=== PATIENT | female | born 1945 | race Caucasian/White ===

== ENCOUNTER → 2016-12-23 | Outpatient (CLI) | payer MEDICARE, BC ==
[~2016-12-23] MED LIST: AMITRIPTYLINE25 M1 PO; ATENOLOL50 MG PO; ATIVAN1 MG PO; FLUOXETINE PO; GABAPENTIN100 MG; HCTZ; KEPPRA 500MG500 MG PO; LIPITOR PO; MELOXICAM7.5 MG PO; NEURONTIN300 MG PO; RITALIN 20M20 MG/TAB PO; SEPTRA DS 800 M1 TA1 PO; SYNTHROID0.075 MG PO; TOPAMAX100 MG PO; TOPAMAX50 MG PO; ULTRAM 50MG TAB50 MG PO; ZANTAC 300300 MG PO
== END ==
LOC: MAMMO 13:25
DX: Z12.31 Encounter for screening mammogram for malignant neoplasm of breast (principal)
CPT/HCPCS: G0202

== ENCOUNTER → 2017-01-05 | Outpatient (CLI) | payer MEDICARE, BC ==
[2017-01-05 11:41] VITALS: BP 134/80
== END ==
LOC: AMSURD 11:14
DX: M85.89 Other specified disorders of bone density and structure, multiple sites (principal); E03.9 Hypothyroidism, unspecified; R73.02 Impaired glucose tolerance (oral)

== ENCOUNTER → 2017-02-02 | Day surgery (SDC) | payer MEDICARE, BC ==
[2017-01-05 11:41] VITALS: BP 134/80
== END ==
LOC: MSO 08:34
DX: Z12.11 Encounter for screening for malignant neoplasm of colon (principal); I10 Essential (primary) hypertension; G47.33 Obstructive sleep apnea (adult) (pediatric); K21.9 Gastro-esophageal reflux disease without esophagitis
CPT/HCPCS: 00810; J3010; J7120

== ENCOUNTER → 2017-05-06 | Outpatient (CLI) | payer MEDICARE, BC ==
[2017-01-05 11:41] VITALS: BP 134/80
== END ==
LOC: LAB 14:28
DX: R20.0 Anesthesia of skin (principal); R20.2 Paresthesia of skin

== ENCOUNTER → 2017-05-28 | Outpatient (CLI) | payer MEDICARE, BC ==
[~2017-05-28] VITALS: Ht 157.5 cm; Wt 82.3 kg
[2017-05-28 10:15] VITALS: BP 118/64
== END ==
LOC: AMSURD 10:09
DX: K59.00 Constipation, unspecified (principal); R42 Dizziness and giddiness; R10.9 Unspecified abdominal pain

== ENCOUNTER → 2017-06-05 | Outpatient (CLI) | payer MEDICARE, BC ==
[2017-05-28 10:15] VITALS: BP 118/64
== END ==
LOC: LAB 14:45
DX: N39.0 Urinary tract infection, site not specified (principal)

== ENCOUNTER → 2017-06-08 | Outpatient (CLI) | payer MEDICARE, BC ==
[2017-05-28 10:15] VITALS: BP 118/64
== END ==
LOC: RAD 12:00
DX: G31.84 Mild cognitive impairment of uncertain or unknown etiology (principal); R25.1 Tremor, unspecified

== ENCOUNTER → 2017-08-07 | Outpatient (CLI) | payer MEDICARE, BC ==
[2017-05-28 10:15] VITALS: BP 118/64
[2017-08-08 01:54] LABS: T3 TOTAL 95 ng/dL (87-178)
== END ==
LOC: LAB 14:04
PROVIDERS: Internal Medicine
DX: E03.9 Hypothyroidism, unspecified (principal)

== ENCOUNTER → 2018-01-15 | Outpatient (CLI) | payer MEDICARE, BC ==
[~2018-01-15] VITALS: Ht 157.5 cm; Wt 84.1 kg
[~2018-01-15] MED LIST changes: +ATORVASTATIN CA40 MG PO; +LEVOCETIRIZINE D5 MG PO
[2018-01-15 10:35] VITALS: BP 147/72
[2018-01-15 11:35] LABS: EOS # 0.3 (0.04-0.40); EOS % 4.3 % (1.0-5.0); HEMATOCRIT 44.1 % (37.0-47.0); HEMOGLOBIN 13.9 g/dL (12.5-16.0); LYMPH# 1.9 (1.50-4.00); MEAN CELL VOLUME 90 fl (78-100); MEAN CORPUSCULAR HEMOGLOBIN 28 pg (27-31); MEAN CORPUSCULAR HGB CONC 32 g/dL (33-37); MEAN PLATELET VOLUME 10.9 fl (7.4-10.4); MONO # 0.6 (0.20-0.80); NEU # 3.4 (1.40-6.50); PLATELET COUNT 138 K/mm3 (130-400); RED BLOOD COUNT 4.93 M/mm3 (4.10-5.30); RED CELL DISTRIBUTION WIDTH 13.1 % (11.5-14.5); WHITE BLOOD COUNT 6.3 K/mm3 (4.8-10.8)
[2018-01-15 13:01] LABS: ERYTHROCYTE SEDIMENTATION RATE 7 mm/hr (0-30)
[2018-01-15 13:42] LABS: ALBUMIN 4.2 g/dL (3.5-5.0); BUN/CREATININE RATIO 26.3 (6.0-26.0); CALCIUM 9.6 mg/dL (8.4-10.2); POTASSIUM 3.5 mmol/L (3.6-5.0); TOTAL BILIRUBIN 0.4 mg/dL (0.2-1.3); TOTAL PROTEIN 7.6 g/dL (6.3-8.2)
[2018-01-15 13:51] LABS: PH-URINE 5.5 (5.0 - 8.0); URINE APPEARANCE HAZY; URINE COLOR YELLOW; URINE PROTEIN(semi-quant) TRACE mg/dL (NEGATIVE)
[2018-01-15 13:52] LABS: URINE BILIRUBIN NEGATIVE (NEGATIVE); URINE BLOOD NEGATIVE (NEGATIVE); URINE GLUCOSE NEGATIVE (NEGATIVE); URINE KETONE NEGATIVE (NEGATIVE); URINE LEUKOCYTE ESTERASE TRACE (NEGATIVE); URINE NITRATE NEGATIVE (NEGATIVE); URINE UROBILINOGEN NORMAL (NORMAL)
[2018-01-16 01:18] LABS: T3 TOTAL 121 ng/dL (87-178)
== END ==
LOC: AMSURD 10:14
PROVIDERS: Internal Medicine
DX: E74.39 Other disorders of intestinal carbohydrate absorption (principal); E78.5 Hyperlipidemia, unspecified; R73.02 Impaired glucose tolerance (oral); E03.9 Hypothyroidism, unspecified; R06.02 Shortness of breath; Z12.11 Encounter for screening for malignant neoplasm of colon; G25.0 Essential tremor; M85.89 Other specified disorders of bone density and structure, multiple sites

== ENCOUNTER → 2018-01-26 | Outpatient (CLI) | payer MEDICARE, BC ==
[2018-01-15 10:35] VITALS: BP 147/72
== END ==
LOC: MAMMO 14:10
DX: Z12.31 Encounter for screening mammogram for malignant neoplasm of breast (principal)

== ENCOUNTER → 2018-01-26 | Outpatient (CLI) | payer MEDICARE, BC ==
[2018-01-15 10:35] VITALS: BP 147/72
== END ==
LOC: RAD 14:08 → MAMMO 14:08 → RAD 15:15
DX: Z13.820 Encounter for screening for osteoporosis (principal); M85.88 Other specified disorders of bone density and structure, other site; R06.02 Shortness of breath; Z88.7 Allergy status to serum and vaccine; Z88.8 Allergy status to other drugs, medicaments and biological substances

== ENCOUNTER 2018-04-15 20:55 | Emergency (ER) | payer MEDICARE, BC ==
[2018-04-15] MEDS ORDERED: FLOVENT DI100 MCG/Ac IH (21:03)
[2018-04-15] MEDS ORDERED: PROAIR HFA0.09 MG/AC IH (21:03)
[2018-04-15 22:24] LABS: HEMATOCRIT 42.8 % (37.0-47.0); HEMOGLOBIN 13.9 g/dL (12.5-16.0); MEAN CELL VOLUME 89 fl (78-100); MEAN CORPUSCULAR HEMOGLOBIN 29 pg (27-31); MEAN CORPUSCULAR HGB CONC 33 g/dL (33-37); MEAN PLATELET VOLUME 11.5 fl (7.4-10.4); PLATELET COUNT 123 K/mm3 (130-400); RED BLOOD COUNT 4.83 M/mm3 (4.10-5.30); RED CELL DISTRIBUTION WIDTH 13.7 % (11.5-14.5); WHITE BLOOD COUNT 7.3 K/mm3 (4.8-10.8)
[2018-04-15 22:43] LABS: ALBUMIN 3.8 g/dL (3.5-5.0); BUN/CREATININE RATIO 34.3 (6.0-26.0); CALCIUM 8.9 mg/dL (8.4-10.2); POTASSIUM 3.8 mmol/L (3.6-5.0); TOTAL BILIRUBIN 0.2 mg/dL (0.2-1.3); TOTAL PROTEIN 6.9 g/dL (6.3-8.2)
[2018-04-15 22:46] LABS: CKMB ISOENZYME 1.3 ng/mL (0.6-3.5)
[2018-04-15 22:52] LABS: LYMPHOCYTE 29 % (20-51); MONOCYTE 5 % (3-10); NEUTROPHILS 64 % (42-75)
[2018-04-15 22:54] LABS: TROPONIN-I < 0.03 ng/mL (0.00-0.06)
[2018-04-15 23:04] LABS: URINE APPEARANCE HAZY; URINE BILIRUBIN NEGATIVE (NEGATIVE); URINE BLOOD 50 ery/uL (NEGATIVE); URINE COLOR YELLOW; URINE GLUCOSE NEGATIVE (NEGATIVE); URINE KETONE NEGATIVE (NEGATIVE); URINE LEUKOCYTE ESTERASE NEGATIVE (NEGATIVE); URINE MUCUS PRESENT (NOT PRESENT); URINE NITRATE NEGATIVE (NEGATIVE); URINE PROTEIN(semi-quant) 1+ mg/dL (NEGATIVE); URINE UROBILINOGEN NORMAL (NORMAL)
[2018-04-15 23:11] LABS: D-DIMER 4.84 mg/L FEU (0.15-0.50)
[2018-04-16] MEDS ORDERED: MULTI VITAMINS1 TAB PO (01:20)
[2018-04-16] MEDS ORDERED: VITAMIN D32000 UNI1 PO (01:20)
[2018-04-16] MEDS ORDERED: RANITIDINE HCL300 M1 PO (01:21)
[2018-04-16] MEDS ORDERED: ALENDRONATE SOD70 MG PO (01:21)
[2018-04-16] MEDS ORDERED: LEVETIRACETAM500 MG PO (01:23)
[2018-04-16] MEDS ORDERED: ASPIRIN E.C. 8181 MG PO (01:24)
[2018-04-16] MEDS ORDERED: ATENOLOL50 MG PO (01:24)
[2018-04-16 02:15] LABS: PROTHROMBIN TIME 9.9 SECONDS (9.0-12.0)
[2018-04-16 03:00] VITALS: BP 124/48
== END 2018-04-16 03:00 | disposition short-term general hospital (02) ==
LOC: ED 20:55
PROVIDERS: Nurse Practitioner Family
DX: I26.99 Other pulmonary embolism without acute cor pulmonale (principal); J45.909 Unspecified asthma, uncomplicated; Z79.82 Long term (current) use of aspirin; Z79.899 Other long term (current) drug therapy; E78.5 Hyperlipidemia, unspecified; F41.9 Anxiety disorder, unspecified
CPT/HCPCS: J1644; J7030

== ENCOUNTER → 2018-08-10 | Outpatient (CLI) | payer MEDICARE, BC ==
[~2018-08-10] MED LIST changes: +ALENDRONATE SOD70 MG PO; +ASPIRIN E.C. 8181 MG PO; +FLOVENT DI100 MCG/Ac IH; +LEVETIRACETAM500 MG PO; +MULTI VITAMINS1 TAB PO; +PROAIR HFA0.09 MG/AC IH; +RANITIDINE HCL300 M1 PO; +VITAMIN D32000 UNI1 PO
[2018-08-10 14:23] LABS: EOS # 0.2 (0.04-0.40); EOS % 3.8 % (1.0-5.0); HEMATOCRIT 42.6 % (37.0-47.0); HEMOGLOBIN 13.7 g/dL (12.5-16.0); LYMPH# 1.7 (1.50-4.00); MEAN CELL VOLUME 90 fl (78-100); MEAN CORPUSCULAR HEMOGLOBIN 29 pg (27-31); MEAN CORPUSCULAR HGB CONC 32 g/dL (33-37); MEAN PLATELET VOLUME 10.7 fl (7.4-10.4); MONO # 0.5 (0.20-0.80); NEU # 2.7 (1.40-6.50); PLATELET COUNT 163 K/mm3 (130-400); RED BLOOD COUNT 4.76 M/mm3 (4.10-5.30); RED CELL DISTRIBUTION WIDTH 13.6 % (11.5-14.5); WHITE BLOOD COUNT 5.1 K/mm3 (4.8-10.8)
[2018-08-10 16:33] LABS: CALCIUM 9.7 mg/dL (8.4-10.2); TOTAL BILIRUBIN 0.4 mg/dL (0.2-1.3); TOTAL PROTEIN 6.7 g/dL (6.3-8.2)
== END ==
LOC: LAB 13:52
PROVIDERS: Internal Medicine
DX: E74.39 Other disorders of intestinal carbohydrate absorption (principal); E78.5 Hyperlipidemia, unspecified; E03.9 Hypothyroidism, unspecified; G25.0 Essential tremor; M85.80 Other specified disorders of bone density and structure, unspecified site

== ENCOUNTER 2018-12-04 11:58 | Observation (INO) | payer MEDICARE, BC ==
[~2018-12-04] VITALS: Ht 157.5 cm; Wt 82.8 kg
[~2018-12-04 11:58] MED LIST changes: +ATIVAN1 M1 PO; -ATIVAN1 MG PO
[2018-12-04] MEDS ORDERED: AMITRIPTYLINE H25 M2 PO ×2 (12:18→14:27)
[2018-12-04 12:44] LABS: EOS # 0.2 (0.04-0.40); EOS % 2.9 % (1.0-5.0); HEMATOCRIT 42.7 % (37.0-47.0); HEMOGLOBIN 13.9 g/dL (12.5-16.0); LYMPH# 1.7 (1.50-4.00); MEAN CELL VOLUME 89 fl (78-100); MEAN CORPUSCULAR HEMOGLOBIN 29 pg (27-31); MEAN CORPUSCULAR HGB CONC 33 g/dL (33-37); MEAN PLATELET VOLUME 10.9 fl (7.4-10.4); MONO # 0.6 (0.20-0.80); NEU # 3.4 (1.40-6.50); PLATELET COUNT 140 K/mm3 (130-400); RED CELL DISTRIBUTION WIDTH 12.9 % (11.5-14.5); WHITE BLOOD COUNT 5.9 K/mm3 (4.8-10.8)
[2018-12-04 12:55] LABS: ALBUMIN 4.2 g/dL (3.5-5.0); CALCIUM 8.9 mg/dL (8.4-10.2); POTASSIUM 3.8 mmol/L (3.6-5.0); TOTAL BILIRUBIN 0.4 mg/dL (0.2-1.3)
[2018-12-04 12:59] LABS: TROPONIN-I 0.05 ng/mL (0.00-0.06)
[2018-12-04 13:20] LABS: D-DIMER 3.78 mg/L FEU (0.15-0.50)
[2018-12-04] MEDS ORDERED: TOPIRAMATE50 MG PO (14:20)
[2018-12-04] MEDS ORDERED: RANITIDINE HCL300 M2 PO (14:23)
[2018-12-04] MEDS ORDERED: TOPAMAX100 MG PO (14:23)
[2018-12-04] MEDS ORDERED: LEVETIRACETAM500 M2 PO (14:26)
[2018-12-04 14:48] VITALS: BP 107/56
[2018-12-04 15:13] VITALS: BP 116/77
[2018-12-04 18:28] VITALS: BP 146/58
[2018-12-04] MEDS ORDERED: MULTIPLE VITAM1 EACH PO (21:32)
[2018-12-04] MEDS ORDERED: VITAMIN D32000 UNI1 PO (21:33)
[2018-12-04] MEDS ORDERED: NEURONTIN300 MG/CAP PO (21:35)
[2018-12-04] MEDS ORDERED: RT ALBUTEROL CC18 GM IH (21:39)
[2018-12-04] MEDS ORDERED: FLONASE ALLERG9.9 ML NS (21:40)
[2018-12-04 23:20] VITALS: BP 97/50
[2018-12-05 02:32] VITALS: BP 112/69
[2018-12-05 06:25] VITALS: BP 112/69
[2018-12-05 10:49] VITALS: BP 107/57
[2018-12-05 14:55] LABS: URINE APPEARANCE CLEAR; URINE BILIRUBIN NEGATIVE (NEGATIVE); URINE BLOOD NEGATIVE (NEGATIVE); URINE COLOR YELLOW; URINE GLUCOSE NEGATIVE (NEGATIVE); URINE KETONE NEGATIVE (NEGATIVE); URINE LEUKOCYTE ESTERASE NEGATIVE (NEGATIVE); URINE NITRATE NEGATIVE (NEGATIVE); URINE PROTEIN(semi-quant) TRACE mg/dL (NEGATIVE); URINE UROBILINOGEN NORMAL (NORMAL)
[2018-12-05 15:00] VITALS: BP 86/52
[2018-12-05 17:53] VITALS: BP 125/71
[2018-12-05 22:34] VITALS: BP 115/74
[2018-12-06 02:48] VITALS: BP 111/77
[2018-12-06 06:23] VITALS: BP 115/75
[2018-12-06 07:42] LABS: TROPONIN-I < 0.03 ng/mL (0.00-0.06)
[2018-12-06 10:46] VITALS: BP 109/73
[2018-12-06 16:05] VITALS: BP 108/68
[2018-12-06] MEDS ORDERED: BACTRIM DS 8001 TAB PO (18:49)
[2018-12-06] MEDS ORDERED: PROVIGIL200 M1 PO (18:55)
[2018-12-06] MEDS ORDERED: XARELTO20 MG PO (19:01)
[2018-12-06] MEDS ORDERED: TRAMADOL 50 MG TAB PO (19:10)
== END 2018-12-06 17:18 | disposition other institution (70) ==
LOC: ED 11:58 → MED/SURG 14:11
PROVIDERS: ADMIT Family Medicine
DX: I26.99 Other pulmonary embolism without acute cor pulmonale (principal); J45.909 Unspecified asthma, uncomplicated; I10 Essential (primary) hypertension; G47.30 Sleep apnea, unspecified; K21.9 Gastro-esophageal reflux disease without esophagitis; G47.419 Narcolepsy without cataplexy; E78.5 Hyperlipidemia, unspecified; I27.20 Pulmonary hypertension, unspecified; G62.9 Polyneuropathy, unspecified; Z79.01 Long term (current) use of anticoagulants
CPT/HCPCS: A9585; G0378; Q9967

== ENCOUNTER 2018-12-06 16:59 | Inpatient (IN) | payer MEDICARE, BC ==
[~2018-12-06] VITALS: Ht 157.5 cm; Wt 83.7 kg
[~2018-12-06 16:59] MED LIST changes: +AMITRIPTYLINE H25 M2 PO; +FLONASE ALLERG9.9 ML NS; +LEVETIRACETAM500 M2 PO; +MULTIPLE VITAM1 EACH PO; +NEURONTIN300 MG/CAP PO; +RANITIDINE HCL300 M2 PO; +RT ALBUTEROL CC18 GM IH; +TOPIRAMATE50 MG PO
[2018-12-06] MEDS ORDERED: BACTRIM DS 8001 TAB PO (18:49)
[2018-12-06] MEDS ORDERED: PROVIGIL200 M1 PO (18:55)
[2018-12-06 18:59] VITALS: BP 113/73
[2018-12-06] MEDS ORDERED: XARELTO20 MG PO (19:01)
[2018-12-06 19:03] VITALS: BP 113/73
[2018-12-06] MEDS ORDERED: TRAMADOL 50 MG TAB PO (19:10)
[2018-12-06 23:02] VITALS: BP 123/83
[2018-12-07 02:51] VITALS: BP 110/62
[2018-12-07 06:00] LABS: EOS # 0.1 (0.04-0.40); EOS % 2.6 % (1.0-5.0); HEMATOCRIT 38.4 % (37.0-47.0); HEMOGLOBIN 12.5 g/dL (12.5-16.0); LYMPH# 1.9 (1.50-4.00); MEAN CELL VOLUME 90 fl (78-100); MEAN CORPUSCULAR HEMOGLOBIN 29 pg (27-31); MEAN CORPUSCULAR HGB CONC 33 g/dL (33-37); MEAN PLATELET VOLUME 10.8 fl (7.4-10.4); MONO # 0.5 (0.20-0.80); NEU # 2.3 (1.40-6.50); PLATELET COUNT 134 K/mm3 (130-400); RED BLOOD COUNT 4.26 M/mm3 (4.10-5.30); RED CELL DISTRIBUTION WIDTH 12.8 % (11.5-14.5); WHITE BLOOD COUNT 4.9 K/mm3 (4.8-10.8)
[2018-12-07 06:18] VITALS: BP 106/69
[2018-12-07 06:22] LABS: ALBUMIN 3.5 g/dL (3.5-5.0); CALCIUM 8.5 mg/dL (8.4-10.2); POTASSIUM 3.8 mmol/L (3.6-5.0); TOTAL BILIRUBIN 0.3 mg/dL (0.2-1.3); TOTAL PROTEIN 6.3 g/dL (6.3-8.2)
[2018-12-07 11:10] VITALS: BP 125/79
[2018-12-07 15:09] VITALS: BP 108/68
[2018-12-07 18:56] VITALS: BP 118/78
[2018-12-07 23:00] VITALS: BP 97/62
[2018-12-08 03:10] VITALS: BP 98/64
[2018-12-08 06:37] VITALS: BP 102/60
[2018-12-08 11:19] VITALS: BP 123/69
[2018-12-08 15:30] VITALS: BP 105/63
[2018-12-08 16:14] LABS: URINE APPEARANCE CLEAR; URINE COLOR YELLOW
[2018-12-08 16:15] LABS: URINE BILIRUBIN NEGATIVE (NEGATIVE); URINE BLOOD NEGATIVE (NEGATIVE); URINE GLUCOSE NEGATIVE (NEGATIVE); URINE KETONE NEGATIVE (NEGATIVE); URINE LEUKOCYTE ESTERASE NEGATIVE (NEGATIVE); URINE NITRATE NEGATIVE (NEGATIVE); URINE PROTEIN(semi-quant) TRACE mg/dL (NEGATIVE); URINE UROBILINOGEN NORMAL (NORMAL)
[2018-12-08 18:41] VITALS: BP 109/71
[2018-12-08 23:26] VITALS: BP 106/64
[2018-12-09 03:16] VITALS: BP 105/61
[2018-12-12 07:26] LABS: CALCIUM 8.8 mg/dL (8.4-10.2); POTASSIUM 3.8 mmol/L (3.6-5.0)
[2018-12-12 07:35] LABS: BASO # 0.1 (0.02-0.10); EOS # 0.2 (0.04-0.40); EOS % 3.7 % (1.0-5.0); HEMATOCRIT 41.2 % (37.0-47.0); LYMPH# 1.8 (1.50-4.00); MEAN CELL VOLUME 90 fl (78-100); MEAN CORPUSCULAR HEMOGLOBIN 28 pg (27-31); MEAN CORPUSCULAR HGB CONC 32 g/dL (33-37); MONO # 0.4 (0.20-0.80); NEU # 2.2 (1.40-6.50); PLATELET COUNT 149 K/mm3 (130-400); RED BLOOD COUNT 4.57 M/mm3 (4.10-5.30); RED CELL DISTRIBUTION WIDTH 12.9 % (11.5-14.5); WHITE BLOOD COUNT 4.6 K/mm3 (4.8-10.8)
== END 2018-12-09 08:45 | disposition swing bed (61) | DRG 176 ==
LOC: MED/SURG 16:59
PROVIDERS: Physician Assistant; ADMIT Nurse Practitioner Primary Care
DX: I26.99 Other pulmonary embolism without acute cor pulmonale (principal); I10 Essential (primary) hypertension; J45.909 Unspecified asthma, uncomplicated; E78.5 Hyperlipidemia, unspecified; E03.9 Hypothyroidism, unspecified; G47.419 Narcolepsy without cataplexy; F41.9 Anxiety disorder, unspecified; G62.9 Polyneuropathy, unspecified; G47.30 Sleep apnea, unspecified; F41.8 Other specified anxiety disorders; G89.29 Other chronic pain; Z91.14 Patient's other noncompliance with medication regimen; I27.20 Pulmonary hypertension, unspecified; R09.02 Hypoxemia; R07.9 Chest pain, unspecified; R41.0 Disorientation, unspecified
CPT/HCPCS: J1650

== ENCOUNTER 2018-12-09 08:45 | Inpatient (IN) | payer MEDICARE, BC ==
[~2018-12-09 08:45] MED LIST changes: +BACTRIM DS 8001 TAB PO; +PROVIGIL200 M1 PO; +TRAMADOL 50 MG TAB PO; +XARELTO20 MG PO
[2018-12-10 18:27] VITALS: BP 124/73
[2018-12-10 18:57] VITALS: BP 124/73
[2018-12-11 06:44] VITALS: BP 124/75
[2018-12-11 18:25] VITALS: BP 123/77
[2018-12-12 06:23] VITALS: BP 125/77
[2018-12-12 18:33] VITALS: BP 112/56; BP 93/55
[2018-12-13 06:06] VITALS: BP 108/58
[2018-12-13 18:54] VITALS: BP 115/62
[2018-12-14 06:26] VITALS: BP 119/76
[2018-12-14 18:00] VITALS: BP 122/61
[2018-12-15 06:22] VITALS: BP 115/72
[2018-12-15 18:00] VITALS: BP 139/63
[2018-12-16 06:24] VITALS: BP 100/59
[2018-12-16] MEDS ORDERED: XARELTO15 MG PO (08:57)
== END 2018-12-16 09:45 | disposition home health service (06) | DRG 947 ==
LOC: MED/SURG 08:45
PROVIDERS: ADMIT Nurse Practitioner Primary Care
DX: R53.81 Other malaise (principal); I26.99 Other pulmonary embolism without acute cor pulmonale; G92 Toxic encephalopathy; R41.0 Disorientation, unspecified; Z99.81 Dependence on supplemental oxygen; R42 Dizziness and giddiness; I27.20 Pulmonary hypertension, unspecified; Z79.01 Long term (current) use of anticoagulants; Z88.8 Allergy status to other drugs, medicaments and biological substances; Z83.2 Family history of diseases of the blood and blood-forming organs and certain disorders involving the immune mechanism; F32.9 Major depressive disorder, single episode, unspecified; R25.1 Tremor, unspecified; E03.9 Hypothyroidism, unspecified; T50.905A Adverse effect of unspecified drugs, medicaments and biological substances, initial encounter; Y92.239 Unspecified place in hospital as the place of occurrence of the external cause

== ENCOUNTER → 2019-01-10 | Outpatient (CLI) | payer MEDICARE, BC ==
[2018-12-16 06:24] VITALS: BP 100/59
[~2019-01-10] MED LIST changes: +XARELTO15 MG PO
[2019-01-10 15:30] LABS: URINE APPEARANCE HAZY; URINE COLOR YELLOW
[2019-01-10 15:31] LABS: URINE BILIRUBIN NEGATIVE (NEGATIVE); URINE BLOOD NEGATIVE (NEGATIVE); URINE GLUCOSE NEGATIVE (NEGATIVE); URINE KETONE NEGATIVE (NEGATIVE); URINE LEUKOCYTE ESTERASE 1+ (NEGATIVE); URINE NITRATE NEGATIVE (NEGATIVE); URINE PROTEIN(semi-quant) TRACE mg/dL (NEGATIVE); URINE UROBILINOGEN NORMAL (NORMAL)
== END ==
LOC: LAB 15:02
PROVIDERS: Internal Medicine
DX: N30.00 Acute cystitis without hematuria (principal)

== ENCOUNTER → 2019-01-21 | Outpatient (CLI) | payer MEDICARE, BC ==
[2019-01-21 16:06] LABS: EOS # 0.1 (0.04-0.40); EOS % 2.2 % (1.0-5.0); HEMATOCRIT 44.4 % (37.0-47.0); HEMOGLOBIN 13.9 g/dL (12.5-16.0); LYMPH# 1.7 (1.50-4.00); MEAN CELL VOLUME 91 fl (78-100); MEAN CORPUSCULAR HEMOGLOBIN 28 pg (27-31); MEAN CORPUSCULAR HGB CONC 31 g/dL (33-37); MEAN PLATELET VOLUME 10.6 fl (7.4-10.4); MONO # 0.6 (0.20-0.80); NEU # 2.9 (1.40-6.50); PLATELET COUNT 196 K/mm3 (130-400); RED BLOOD COUNT 4.89 M/mm3 (4.10-5.30); RED CELL DISTRIBUTION WIDTH 12.9 % (11.5-14.5); WHITE BLOOD COUNT 5.4 K/mm3 (4.8-10.8)
[2019-01-21 16:46] LABS: ALBUMIN 4.6 g/dL (3.5-5.0); CALCIUM 9.7 mg/dL (8.4-10.2); POTASSIUM 4.8 mmol/L (3.6-5.0); TOTAL BILIRUBIN 0.4 mg/dL (0.2-1.3); TOTAL PROTEIN 7.5 g/dL (6.3-8.2)
[2019-01-21 17:48] LABS: URINE APPEARANCE HAZY; URINE COLOR YELLOW
[2019-01-21 17:49] LABS: URINE BILIRUBIN NEGATIVE (NEGATIVE); URINE BLOOD TRACE (NEGATIVE); URINE GLUCOSE NEGATIVE (NEGATIVE); URINE KETONE NEGATIVE (NEGATIVE); URINE LEUKOCYTE ESTERASE NEGATIVE (NEGATIVE); URINE NITRATE NEGATIVE (NEGATIVE); URINE PROTEIN(semi-quant) TRACE mg/dL (NEGATIVE); URINE UROBILINOGEN NORMAL (NORMAL)
[2019-01-21 21:08] LABS: ERYTHROCYTE SEDIMENTATION RATE 5 mm/hr (0-30)
[2019-01-22 00:31] LABS: T3 TOTAL 54 ng/dL (87-178)
== END ==
LOC: LAB 15:48
PROVIDERS: Internal Medicine
DX: Z12.11 Encounter for screening for malignant neoplasm of colon (principal); E74.39 Other disorders of intestinal carbohydrate absorption; E03.8 Other specified hypothyroidism; M85.80 Other specified disorders of bone density and structure, unspecified site; G25.0 Essential tremor

== ENCOUNTER → 2019-02-02 | Outpatient (CLI) | payer MEDICARE, BC | LOC: MAMMO 08:16 | DX: Z12.31 Encounter for screening mammogram for malignant neoplasm of breast (principal); M85.80 Other specified disorders of bone density and structure, unspecified site ==

== ENCOUNTER → 2019-03-17 | Outpatient (CLI) | payer MEDICARE, BC ==
[2019-03-17 17:49] LABS: PH-URINE 5.5 (5.0 - 8.0); URINE APPEARANCE HAZY; URINE BILIRUBIN NEGATIVE (NEGATIVE); URINE BLOOD 50 ery/uL (NEGATIVE); URINE COLOR YELLOW; URINE GLUCOSE NEGATIVE (NEGATIVE); URINE KETONE 1+ (NEGATIVE); URINE LEUKOCYTE ESTERASE 1+ (NEGATIVE); URINE NITRATE NEGATIVE (NEGATIVE); URINE PROTEIN(semi-quant) 1+ mg/dL (NEGATIVE); URINE UROBILINOGEN NORMAL (NORMAL)
== END ==
LOC: LAB 16:29
PROVIDERS: Internal Medicine
DX: N30.00 Acute cystitis without hematuria (principal); R30.0 Dysuria

== ENCOUNTER → 2019-07-04 | Outpatient (CLI) | payer MEDICARE, BC ==
[2019-07-04 14:27] LABS: EOS # 0.1 (0.04-0.40); EOS % 1.6 % (1.0-5.0); HEMATOCRIT 42.7 % (37.0-47.0); HEMOGLOBIN 13.7 g/dL (12.5-16.0); LYMPH# 1.5 (1.50-4.00); MEAN CELL VOLUME 90 fl (78-100); MEAN CORPUSCULAR HEMOGLOBIN 29 pg (27-31); MEAN CORPUSCULAR HGB CONC 32 g/dL (33-37); MEAN PLATELET VOLUME 10.4 fl (7.4-10.4); MONO # 0.6 (0.20-0.80); PLATELET COUNT 175 K/mm3 (130-400); RED BLOOD COUNT 4.73 M/mm3 (4.10-5.30); RED CELL DISTRIBUTION WIDTH 12.6 % (11.5-14.5); WHITE BLOOD COUNT 6.2 K/mm3 (4.8-10.8)
[2019-07-04 14:36] LABS: POTASSIUM 3.9 mmol/L (3.5-5.1)
[2019-07-04 14:37] LABS: CALCIUM 9.3 mg/dL (8.3-10.5)
[2019-07-04 14:38] LABS: TOTAL PROTEIN 6.8 g/dL (6.2-8.1)
[2019-07-04 14:40] LABS: TOTAL BILIRUBIN 0.3 mg/dL (0.2-1.2)
[2019-07-04 16:21] LABS: ERYTHROCYTE SEDIMENTATION RATE 6 mm/hr (0-30)
== END ==
LOC: LAB 14:15
PROVIDERS: Internal Medicine
DX: I27.24 Chronic thromboembolic pulmonary hypertension (principal); R10.84 Generalized abdominal pain; D64.9 Anemia, unspecified; R19.8 Other specified symptoms and signs involving the digestive system and abdomen

== ENCOUNTER → 2019-07-05 | Outpatient (CLI) | payer MEDICARE, BC | LOC: RAD 07:50 | DX: K76.0 Fatty (change of) liver, not elsewhere classified (principal); K82.8 Other specified diseases of gallbladder; M51.36 Other intervertebral disc degeneration, lumbar region; M48.061 Spinal stenosis, lumbar region without neurogenic claudication; Z90.710 Acquired absence of both cervix and uterus | CPT/HCPCS: Q9967 ==

== ENCOUNTER → 2019-12-02 | Outpatient (CLI) | payer MEDICARE, BC ==
[2019-12-02 09:34] LABS: BASO # 0.1 (0.02-0.10); EOS # 0.5 (0.04-0.40); EOS % 7.8 % (1.0-5.0); HEMATOCRIT 44.4 % (37.0-47.0); HEMOGLOBIN 13.7 g/dL (12.5-16.0); LYMPH# 1.4 (1.50-4.00); MEAN CELL VOLUME 93 fl (78-100); MEAN CORPUSCULAR HEMOGLOBIN 29 pg (27-31); MEAN CORPUSCULAR HGB CONC 31 g/dL (33-37); MEAN PLATELET VOLUME 10.6 fl (7.4-10.4); MONO # 0.6 (0.20-0.80); NEU # 3.5 (1.40-6.50); PLATELET COUNT 192 K/mm3 (130-400); RED BLOOD COUNT 4.78 M/mm3 (4.10-5.30); RED CELL DISTRIBUTION WIDTH 12.8 % (11.5-14.5); WHITE BLOOD COUNT 6.1 K/mm3 (4.8-10.8)
[2019-12-02 10:00] LABS: ALBUMIN 4.1 g/dL (3.4-4.8); POTASSIUM 4.2 mmol/L (3.5-5.1)
[2019-12-02 10:01] LABS: CALCIUM 8.8 mg/dL (8.3-10.5)
[2019-12-02 10:02] LABS: TOTAL PROTEIN 6.8 g/dL (6.2-8.1)
[2019-12-02 10:04] LABS: TOTAL BILIRUBIN 0.3 mg/dL (0.2-1.2)
[2019-12-02 10:09] LABS: MAGNESIUM 1.99 mg/dL (1.60-2.60)
[2019-12-02 10:38] LABS: PH-URINE 6.5 (5.0 - 8.0); URINE APPEARANCE CLOUDY; URINE BILIRUBIN NEGATIVE (NEGATIVE); URINE BLOOD TRACE (NEGATIVE); URINE COLOR YELLOW; URINE GLUCOSE NEGATIVE (NEGATIVE); URINE KETONE NEGATIVE (NEGATIVE); URINE LEUKOCYTE ESTERASE 2+ (NEGATIVE); URINE NITRATE POSITIVE (NEGATIVE); URINE PROTEIN(semi-quant) NEGATIVE (NEGATIVE); URINE UROBILINOGEN NORMAL (NORMAL); URINE WBC >50 /hpf (0-3)
[2019-12-02 10:39] LABS: URINE MUCUS PRESENT (NOT PRESENT)
== END ==
LOC: RAD 09:01 → LAB 09:01 → AMSURD 09:01
PROVIDERS: Internal Medicine
DX: Z01.818 Encounter for other preprocedural examination (principal); H25.813 Combined forms of age-related cataract, bilateral

== ENCOUNTER → 2019-12-05 | Outpatient (CLI) | payer MEDICARE, BC ==
[2019-12-05 15:02] LABS: URINE APPEARANCE CLOUDY; URINE BILIRUBIN NEGATIVE (NEGATIVE); URINE BLOOD TRACE (NEGATIVE); URINE COLOR YELLOW; URINE GLUCOSE NEGATIVE (NEGATIVE); URINE KETONE NEGATIVE (NEGATIVE); URINE LEUKOCYTE ESTERASE 1+ (NEGATIVE); URINE NITRATE POSITIVE (NEGATIVE); URINE PROTEIN(semi-quant) 1+ mg/dL (NEGATIVE); URINE UROBILINOGEN NORMAL (NORMAL)
== END ==
LOC: LAB 14:42
PROVIDERS: Internal Medicine
DX: Z01.818 Encounter for other preprocedural examination (principal); H25.813 Combined forms of age-related cataract, bilateral; N30.00 Acute cystitis without hematuria

== ENCOUNTER → 2019-12-07 | Day surgery (SDC) | payer MEDICARE, BC | LOC: MSO 09:09 | DX: H25.811 Combined forms of age-related cataract, right eye (principal); E78.00 Pure hypercholesterolemia, unspecified; Z79.899 Other long term (current) drug therapy; R00.2 Palpitations; J45.909 Unspecified asthma, uncomplicated; G47.33 Obstructive sleep apnea (adult) (pediatric); K21.9 Gastro-esophageal reflux disease without esophagitis; Z79.01 Long term (current) use of anticoagulants; E03.9 Hypothyroidism, unspecified; G47.419 Narcolepsy without cataplexy; H54.62 Unqualified visual loss, left eye, normal vision right eye | CPT/HCPCS: 00142; J0171; J2250; V2632 ==

== ENCOUNTER → 2020-03-08 | Outpatient (CLI) | payer MEDICARE, BC ==
[2020-03-08 17:38] LABS: URINE APPEARANCE HAZY; URINE BILIRUBIN NEGATIVE (NEGATIVE); URINE BLOOD TRACE (NEGATIVE); URINE COLOR YELLOW; URINE GLUCOSE NEGATIVE (NEGATIVE); URINE KETONE NEGATIVE (NEGATIVE); URINE LEUKOCYTE ESTERASE 1+ (NEGATIVE); URINE NITRATE POSITIVE (NEGATIVE); URINE PROTEIN(semi-quant) TRACE mg/dL (NEGATIVE); URINE UROBILINOGEN NORMAL (NORMAL); URINE WBC 16-30 /hpf (0-3)
== END ==
LOC: LAB 16:34
PROVIDERS: Internal Medicine
DX: Z01.818 Encounter for other preprocedural examination (principal); N30.00 Acute cystitis without hematuria; H25.813 Combined forms of age-related cataract, bilateral

== ENCOUNTER → 2020-04-09 | Outpatient (CLI) | payer MEDICARE, BC ==
[2020-04-09 11:54] LABS: URINE APPEARANCE CLOUDY; URINE BILIRUBIN NEGATIVE (NEGATIVE); URINE BLOOD NEGATIVE (NEGATIVE); URINE COLOR YELLOW; URINE GLUCOSE NEGATIVE (NEGATIVE); URINE KETONE NEGATIVE (NEGATIVE); URINE LEUKOCYTE ESTERASE TRACE (NEGATIVE); URINE NITRATE NEGATIVE (NEGATIVE); URINE PROTEIN(semi-quant) TRACE mg/dL (NEGATIVE); URINE UROBILINOGEN NORMAL (NORMAL)
== END ==
LOC: LAB 11:24
PROVIDERS: Internal Medicine
DX: Z01.818 Encounter for other preprocedural examination (principal); H25.813 Combined forms of age-related cataract, bilateral; N30.00 Acute cystitis without hematuria

== ENCOUNTER → 2020-09-17 | Outpatient (CLI) | payer MEDICARE, BC ==
[2020-09-17 15:35] LABS: BASO # 0.1 (0.02-0.10); EOS # 0.1 (0.04-0.40); EOS % 2.8 % (1.0-5.0); HEMATOCRIT 44.7 % (37.0-47.0); LYMPH# 1.4 (1.50-4.00); MEAN CELL VOLUME 94 fl (78-100); MEAN CORPUSCULAR HEMOGLOBIN 29 pg (27-31); MEAN CORPUSCULAR HGB CONC 31 g/dL (33-37); MEAN PLATELET VOLUME 10.5 fl (7.4-10.4); MONO # 0.5 (0.20-0.80); NEU # 2.9 (1.40-6.50); PLATELET COUNT 189 K/mm3 (130-400); RED BLOOD COUNT 4.78 M/mm3 (4.10-5.30); RED CELL DISTRIBUTION WIDTH 12.8 % (11.5-14.5)
[2020-09-17 15:47] LABS: ALBUMIN 4.1 g/dL (3.4-4.8); POTASSIUM 4.2 mmol/L (3.5-5.1)
[2020-09-17 15:48] LABS: CALCIUM 8.9 mg/dL (8.3-10.5)
[2020-09-17 15:49] LABS: TOTAL PROTEIN 6.5 g/dL (6.2-8.1)
[2020-09-17 15:51] LABS: TOTAL BILIRUBIN 0.2 mg/dL (0.2-1.2)
[2020-09-17 15:56] LABS: MAGNESIUM 2.05 mg/dL (1.60-2.60)
[2020-09-18 03:06] LABS: T3 TOTAL 25 ng/dL (58-159)
== END ==
LOC: LAB 15:21
PROVIDERS: Internal Medicine
DX: E78.2 Mixed hyperlipidemia (principal); E03.8 Other specified hypothyroidism; M85.80 Other specified disorders of bone density and structure, unspecified site; I27.20 Pulmonary hypertension, unspecified

== ENCOUNTER 2020-10-10 11:38 | Emergency (ER) | payer MEDICARE, BC ==
[2020-10-10 12:11] LABS: ALBUMIN 4.2 g/dL (3.4-4.8)
[2020-10-10 12:12] LABS: POTASSIUM 3.9 mmol/L (3.5-5.1)
[2020-10-10 12:13] LABS: CALCIUM 8.9 mg/dL (8.3-10.5)
[2020-10-10 12:14] LABS: TOTAL PROTEIN 6.1 g/dL (6.2-8.1)
[2020-10-10 12:16] LABS: TOTAL BILIRUBIN 0.4 mg/dL (0.2-1.2)
[2020-10-10 12:18] LABS: EOS # 0.1 (0.04-0.40); EOS % 2.3 % (1.0-5.0); HEMATOCRIT 44.1 % (37.0-47.0); HEMOGLOBIN 13.7 g/dL (12.5-16.0); LYMPH# 1.2 (1.50-4.00); MEAN CELL VOLUME 93 fl (78-100); MEAN CORPUSCULAR HEMOGLOBIN 29 pg (27-31); MEAN CORPUSCULAR HGB CONC 31 g/dL (33-37); MEAN PLATELET VOLUME 10.8 fl (7.4-10.4); MONO # 0.4 (0.20-0.80); NEU # 3.5 (1.40-6.50); PLATELET COUNT 196 K/mm3 (130-400); RED BLOOD COUNT 4.75 M/mm3 (4.10-5.30); RED CELL DISTRIBUTION WIDTH 12.8 % (11.5-14.5); WHITE BLOOD COUNT 5.3 K/mm3 (4.8-10.8)
[2020-10-10 13:07] LABS: URINE APPEARANCE CLOUDY; URINE BILIRUBIN NEGATIVE (NEGATIVE); URINE BLOOD 250 ery/uL (NEGATIVE); URINE COLOR YELLOW; URINE GLUCOSE NEGATIVE (NEGATIVE); URINE KETONE NEGATIVE (NEGATIVE); URINE NITRATE NEGATIVE (NEGATIVE); URINE PROTEIN(semi-quant) TRACE mg/dL (NEGATIVE); URINE UROBILINOGEN NORMAL (NORMAL)
[2020-10-10 13:08] LABS: URINE LEUKOCYTE ESTERASE NEGATIVE (NEGATIVE); URINE MUCUS PRESENT (NOT PRESENT)
[2020-10-10] MEDS ORDERED: FLUOXETINE HCL20 MG PO (13:52)
[2020-10-10] MEDS ORDERED: WELLBUTRIN 75MG75 MG PO (13:52)
[2020-10-10] MEDS ORDERED: LORAZEPAM0.5 M1 PO (13:52)
[2020-10-10] MEDS ORDERED: CEPHALEXIN500 M1 PO (14:44)
[2020-10-10 14:55] VITALS: BP 107/54
== END 2020-10-10 14:55 | disposition home or self-care (01) ==
LOC: ED 11:38
PROVIDERS: Nurse Practitioner
DX: N12 Tubulo-interstitial nephritis, not specified as acute or chronic (principal); R56.9 Unspecified convulsions; Z86.711 Personal history of pulmonary embolism; Z79.01 Long term (current) use of anticoagulants; Z88.8 Allergy status to other drugs, medicaments and biological substances
CPT/HCPCS: J0696; J7030; Q9967

== ENCOUNTER → 2021-01-21 | Outpatient (CLI) | payer MEDICARE, BC ==
[~2021-01-21] MED LIST changes: +CEPHALEXIN500 M1 PO; +FLUOXETINE HCL20 MG PO; +LORAZEPAM0.5 M1 PO; +WELLBUTRIN 75MG75 MG PO
[2021-01-21 12:57] LABS: URINE APPEARANCE CLOUDY; URINE BILIRUBIN NEGATIVE (NEGATIVE); URINE BLOOD 250 ery/uL (NEGATIVE); URINE COLOR BROWN; URINE GLUCOSE NEGATIVE (NEGATIVE); URINE KETONE NEGATIVE (NEGATIVE); URINE LEUKOCYTE ESTERASE 2+ (NEGATIVE); URINE NITRATE POSITIVE (NEGATIVE); URINE PROTEIN(semi-quant) 2+ mg/dL (NEGATIVE); URINE UROBILINOGEN NORMAL (NORMAL); URINE WBC 16-30 /hpf (0-3)
== END ==
LOC: LAB 12:25
PROVIDERS: Internal Medicine
DX: R31.0 Gross hematuria (principal)

== ENCOUNTER 2021-03-13 13:57 | Outpatient (RCR) | payer MEDICARE, BC | END 2021-04-10 17:00 | disposition home or self-care (01) | LOC: PT 13:57 | DX: M25.511 Pain in right shoulder (principal) ==

== ENCOUNTER → 2021-03-13 | Outpatient (CLI) | payer MEDICARE, BC ==
[2021-03-13 17:07] LABS: URINE APPEARANCE CLOUDY; URINE COLOR BROWN
[2021-03-13 17:08] LABS: URINE BILIRUBIN 2+ (NEGATIVE); URINE BLOOD 250 ery/uL (NEGATIVE); URINE GLUCOSE NEGATIVE (NEGATIVE); URINE KETONE NEGATIVE (NEGATIVE); URINE LEUKOCYTE ESTERASE TRACE (NEGATIVE); URINE NITRATE NEGATIVE (NEGATIVE); URINE PROTEIN(semi-quant) 2+ mg/dL (NEGATIVE); URINE UROBILINOGEN NORMAL (NORMAL)
== END ==
LOC: RAD 16:32
PROVIDERS: Nurse Practitioner
DX: N20.0 Calculus of kidney (principal); Z90.710 Acquired absence of both cervix and uterus

== ENCOUNTER → 2021-05-06 | Outpatient (CLI) | payer MEDICARE, BC ==
[2021-05-06 16:09] LABS: BASO # 0.05 (0.02-0.10); EOS # 0.12 (0.04-0.40); EOS % 2.2 % (1.0-5.0); HEMATOCRIT 43.7 % (37.0-47.0); HEMOGLOBIN 13.7 g/dL (12.5-16.0); MEAN CELL VOLUME 93 fl (78-100); MEAN CORPUSCULAR HEMOGLOBIN 29 pg (27-31); MEAN CORPUSCULAR HGB CONC 31 g/dL (33-37); MEAN PLATELET VOLUME 10.4 fl (7.4-10.4); MONO # 0.49 (0.20-0.80); NEU # 3.19 (1.40-6.50); PLATELET COUNT 199 K/mm3 (130-400); RED BLOOD COUNT 4.71 M/mm3 (4.10-5.30); RED CELL DISTRIBUTION WIDTH 12.9 % (11.5-14.5); WHITE BLOOD COUNT 5.4 K/mm3 (4.8-10.8)
[2021-05-06 16:19] LABS: POTASSIUM 4.1 mmol/L (3.5-5.1)
[2021-05-06 16:21] LABS: TOTAL PROTEIN 6.8 g/dL (6.2-8.1)
[2021-05-06 16:23] LABS: TOTAL BILIRUBIN 0.3 mg/dL (0.2-1.2)
[2021-05-06 16:26] LABS: CALCIUM 9.1 mg/dL (8.3-10.5)
== END ==
LOC: LAB 15:53
PROVIDERS: Internal Medicine
DX: E03.8 Other specified hypothyroidism (principal); K90.9 Intestinal malabsorption, unspecified; F41.8 Other specified anxiety disorders

== ENCOUNTER 2021-07-23 11:31 | Emergency (ER) | payer MEDICARE, BC ==
[2021-07-23 12:34] LABS: ALBUMIN 3.6 g/dL (3.4-4.8); POTASSIUM 4.3 mmol/L (3.5-5.1)
[2021-07-23 12:36] LABS: CALCIUM 9.2 mg/dL (8.3-10.5)
[2021-07-23 12:37] LABS: TOTAL PROTEIN 6.2 g/dL (6.2-8.1)
[2021-07-23 12:39] LABS: TOTAL BILIRUBIN 0.2 mg/dL (0.2-1.2)
[2021-07-23 12:41] LABS: BASO # 0.04 K/mm3 (0.02-0.10); EOS % 1.4 % (1.0-5.0); HEMATOCRIT 42.1 % (37.0-47.0); HEMOGLOBIN 12.9 g/dL (12.5-16.0); LYMPH# 0.89 K/mm3 (1.50-4.00); MEAN CELL VOLUME 95 fl (78-100); MEAN CORPUSCULAR HEMOGLOBIN 29 pg (27-31); MEAN CORPUSCULAR HGB CONC 31 g/dL (33-37); MEAN PLATELET VOLUME 10.9 fl (7.4-10.4); MONO # 0.45 K/mm3 (0.20-0.80); NEU # 5.46 K/mm3 (1.40-6.50); PLATELET COUNT 186 K/mm3 (130-400); RED BLOOD COUNT 4.45 M/mm3 (4.10-5.30); RED CELL DISTRIBUTION WIDTH 12.8 % (11.5-14.5)
[2021-07-23 13:20] LABS: URINE APPEARANCE CLOUDY; URINE BILIRUBIN NEGATIVE (NEGATIVE); URINE BLOOD 250 ery/uL (NEGATIVE); URINE COLOR YELLOW; URINE GLUCOSE NEGATIVE (NEGATIVE); URINE KETONE NEGATIVE (NEGATIVE); URINE LEUKOCYTE ESTERASE 1+ (NEGATIVE); URINE NITRATE NEGATIVE (NEGATIVE); URINE PROTEIN(semi-quant) TRACE mg/dL (NEGATIVE); URINE UROBILINOGEN NORMAL (NORMAL)
[2021-07-23 13:21] LABS: URINE MUCUS PRESENT (NOT PRESENT)
[2021-07-23] MEDS ORDERED: TRAMADOL 50 MG TAB PO (15:06)
[2021-07-23 15:23] VITALS: BP 145/75
== END 2021-07-23 15:24 | disposition home or self-care (01) ==
LOC: ED 11:31
PROVIDERS: Physician Assistant
DX: S62.305A Unspecified fracture of fourth metacarpal bone, left hand, initial encounter for closed fracture (principal); S62.303A Unspecified fracture of third metacarpal bone, left hand, initial encounter for closed fracture; S00.93XA Contusion of unspecified part of head, initial encounter; R31.9 Hematuria, unspecified; J45.909 Unspecified asthma, uncomplicated; E03.9 Hypothyroidism, unspecified; K21.9 Gastro-esophageal reflux disease without esophagitis; F41.9 Anxiety disorder, unspecified; F32.A Depression, unspecified; E78.5 Hyperlipidemia, unspecified; E66.9 Obesity, unspecified; I27.20 Pulmonary hypertension, unspecified; Z86.711 Personal history of pulmonary embolism; Z79.01 Long term (current) use of anticoagulants; Z79.890 Hormone replacement therapy; Z79.899 Other long term (current) drug therapy; W01.0XXA Fall on same level from slipping, tripping and stumbling without subsequent striking against object, initial encounter; Y93.01 Activity, walking, marching and hiking
CPT/HCPCS: Q9967

== ENCOUNTER → 2021-08-20 | Outpatient (CLI) | payer MEDICARE, BC ==
[2021-08-20 15:03] LABS: URINE COLOR YELLOW
[2021-08-20 15:04] LABS: URINE APPEARANCE HAZY; URINE BILIRUBIN NEGATIVE (NEGATIVE); URINE BLOOD 250 ery/uL (NEGATIVE); URINE GLUCOSE NEGATIVE (NEGATIVE); URINE KETONE NEGATIVE (NEGATIVE); URINE LEUKOCYTE ESTERASE 2+ (NEGATIVE); URINE NITRATE NEGATIVE (NEGATIVE); URINE PROTEIN(semi-quant) 2+ mg/dL (NEGATIVE); URINE UROBILINOGEN NORMAL (NORMAL)
[2021-08-21 00:05] LABS: T3 TOTAL 88 ng/dL (35-193)
== END ==
LOC: LAB 14:17
PROVIDERS: Internal Medicine
DX: E03.8 Other specified hypothyroidism (principal); K90.9 Intestinal malabsorption, unspecified; E78.2 Mixed hyperlipidemia; R31.29 Other microscopic hematuria

== ENCOUNTER → 2021-10-16 | Outpatient (CLI) | payer MEDICARE, BC ==
[2021-10-16 14:34] LABS: BASO # 0.04 K/mm3 (0.02-0.10); EOS # 0.22 K/mm3 (0.04-0.40); EOS % 4.1 % (1.0-5.0); HEMATOCRIT 43.3 % (37.0-47.0); HEMOGLOBIN 13.6 g/dL (12.5-16.0); LYMPH# 1.64 K/mm3 (1.50-4.00); MEAN CELL VOLUME 94 fl (78-100); MEAN CORPUSCULAR HEMOGLOBIN 30 pg (27-31); MEAN CORPUSCULAR HGB CONC 31 g/dL (33-37); MEAN PLATELET VOLUME 10.3 fl (7.4-10.4); MONO # 0.47 K/mm3 (0.20-0.80); NEU # 3.04 K/mm3 (1.40-6.50); PLATELET COUNT 201 K/mm3 (130-400); RED BLOOD COUNT 4.59 M/mm3 (4.10-5.30); RED CELL DISTRIBUTION WIDTH 12.9 % (11.5-14.5); WHITE BLOOD COUNT 5.4 K/mm3 (4.8-10.8)
[2021-10-16 14:41] LABS: ALBUMIN 3.9 g/dL (3.4-4.8)
[2021-10-16 14:42] LABS: POTASSIUM 3.3 mmol/L (3.5-5.1)
[2021-10-16 14:43] LABS: CALCIUM 9.1 mg/dL (8.3-10.5)
[2021-10-16 14:44] LABS: TOTAL PROTEIN 7.3 g/dL (6.2-8.1)
[2021-10-16 14:46] LABS: TOTAL BILIRUBIN 0.4 mg/dL (0.2-1.2)
[2021-10-16 15:10] LABS: URINE APPEARANCE HAZY; URINE BILIRUBIN NEGATIVE (NEGATIVE); URINE BLOOD 250 ery/uL (NEGATIVE); URINE COLOR YELLOW; URINE GLUCOSE NEGATIVE (NEGATIVE); URINE KETONE NEGATIVE (NEGATIVE); URINE LEUKOCYTE ESTERASE 1+ (NEGATIVE); URINE NITRATE NEGATIVE (NEGATIVE); URINE PROTEIN(semi-quant) 1+ (NEGATIVE); URINE UROBILINOGEN NORMAL (NORMAL)
== END ==
LOC: LAB 14:22
PROVIDERS: Internal Medicine
DX: R31.0 Gross hematuria (principal)

== ENCOUNTER → 2021-11-28 | Outpatient (CLI) | payer MEDICARE, BC ==
[2021-11-28 15:49] LABS: BASO # 0.04 K/mm3 (0.02-0.10); EOS # 0.06 K/mm3 (0.04-0.40); EOS % 0.9 % (1.0-5.0); HEMATOCRIT 43.3 % (37.0-47.0); HEMOGLOBIN 13.9 g/dL (12.5-16.0); LYMPH# 1.48 K/mm3 (1.50-4.00); MEAN CELL VOLUME 92 fl (78-100); MEAN CORPUSCULAR HEMOGLOBIN 30 pg (27-31); MEAN CORPUSCULAR HGB CONC 32 g/dL (33-37); MEAN PLATELET VOLUME 10.8 fl (7.4-10.4); MONO # 0.52 K/mm3 (0.20-0.80); NEU # 4.92 K/mm3 (1.40-6.50); PLATELET COUNT 239 K/mm3 (130-400); RED BLOOD COUNT 4.69 M/mm3 (4.10-5.30); RED CELL DISTRIBUTION WIDTH 12.4 % (11.5-14.5)
[2021-11-28 15:58] LABS: ALBUMIN 4.2 g/dL (3.4-4.8)
[2021-11-28 15:59] LABS: POTASSIUM 3.5 mmol/L (3.5-5.1)
[2021-11-28 16:00] LABS: CALCIUM 9.4 mg/dL (8.3-10.5)
[2021-11-28 16:01] LABS: TOTAL PROTEIN 7.1 g/dL (6.2-8.1)
[2021-11-28 16:03] LABS: TOTAL BILIRUBIN 0.3 mg/dL (0.2-1.2)
[2021-11-28 17:07] LABS: ERYTHROCYTE SEDIMENTATION RATE 7 mm/hr (0-30)
[2021-11-28 17:15] LABS: URINE APPEARANCE CLOUDY; URINE BILIRUBIN 1+ (NEGATIVE); URINE COLOR AMBER; URINE GLUCOSE NEGATIVE (NEGATIVE); URINE KETONE TRACE (NEGATIVE); URINE PROTEIN(semi-quant) 1+ (NEGATIVE); URINE UROBILINOGEN NORMAL (NORMAL)
[2021-11-28 17:16] LABS: URINE BLOOD 250 ery/uL (NEGATIVE); URINE LEUKOCYTE ESTERASE 1+ (NEGATIVE); URINE MUCUS PRESENT (NOT PRESENT); URINE NITRATE NEGATIVE (NEGATIVE)
== END ==
LOC: LAB 15:30
PROVIDERS: Internal Medicine
DX: R10.84 Generalized abdominal pain (principal)

== ENCOUNTER → 2022-04-28 | Outpatient (CLI) | payer MEDICARE, BC ==
[2022-04-28 08:32] LABS: BASO # 0.03 K/mm3 (0.02-0.10); EOS # 0.37 K/mm3 (0.04-0.40); EOS % 5.6 % (1.0-5.0); HEMATOCRIT 36.4 % (37.0-47.0); HEMOGLOBIN 10.7 g/dL (12.5-16.0); LYMPH# 1.13 K/mm3 (1.50-4.00); MEAN CELL VOLUME 87 fl (78-100); MEAN CORPUSCULAR HEMOGLOBIN 25 pg (27-31); MEAN CORPUSCULAR HGB CONC 29 g/dL (33-37); MEAN PLATELET VOLUME 11.3 fl (7.4-10.4); PLATELET COUNT 203 K/mm3 (130-400); RED BLOOD COUNT 4.21 M/mm3 (4.10-5.30); RED CELL DISTRIBUTION WIDTH 15.3 % (11.5-14.5); WHITE BLOOD COUNT 6.6 K/mm3 (4.8-10.8)
[2022-04-28 08:51] LABS: ALBUMIN 3.7 g/dL (3.4-4.8); POTASSIUM 4.2 mmol/L (3.5-5.1)
[2022-04-28 08:52] LABS: CALCIUM 9.1 mg/dL (8.3-10.5)
[2022-04-28 08:54] LABS: TOTAL PROTEIN 6.1 g/dL (6.2-8.1)
[2022-04-28 08:56] LABS: TOTAL BILIRUBIN 0.3 mg/dL (0.2-1.2)
[2022-04-29 00:58] LABS: HEPATITIS C VIRUS ANTIBODY Negative (Negative)
== END ==
LOC: LAB 08:05
PROVIDERS: Family Medicine
DX: Z11.59 Encounter for screening for other viral diseases (principal); E78.2 Mixed hyperlipidemia; E03.9 Hypothyroidism, unspecified; E55.9 Vitamin D deficiency, unspecified

== ENCOUNTER 2024-04-26 12:35 | Emergency (ER) | payer MEDICARE, BC ==
[~2024-04-26] VITALS: Ht 157.5 cm; Wt 91.3 kg
[2024-04-26] MEDS ORDERED: LYRICA100 MG PO (13:09)
[2024-04-26] MEDS ORDERED: DESYREL 100MG100 MG PO (13:10)
[2024-04-26] MEDS ORDERED: HYDROCHLOROTH12.5 M1 PO (13:10)
[2024-04-26] MEDS ORDERED: VITAMIN D3125 MC3 PO (13:10)
[2024-04-26] MEDS ORDERED: COLACE100 M1 PO (13:10)
[2024-04-26] MEDS ORDERED: ZOLOFT 100MG100 MG PO (13:11)
[2024-04-26] MEDS ORDERED: PROVIGIL200 M1 PO (13:11)
[2024-04-26] MEDS ORDERED: RYTARY1 CE3 PO (13:12)
[2024-04-26] MEDS ORDERED: LEVOTHYROXIN0.075 MG PO (13:12)
[2024-04-26] MEDS ORDERED: TENORMIN50 M1 PO (13:13)
[2024-04-26] MEDS ORDERED: XARELTO20 MG PO (13:13)
[2024-04-26] MEDS ORDERED: METAMUCIL0.4 GM PO (13:14)
[2024-04-26] MEDS ORDERED: Lidocaine/EPINEPHrine/Tetracaine Topical Gel 3 ML SYRINGE TOP ONE (13:30)
[2024-04-26 15:19] VITALS: BP 159/71
== END 2024-04-26 15:15 | disposition home or self-care (01) ==
LOC: ED 12:35
DX: T25.221A Burn of second degree of right foot, initial encounter (principal); X08.8XXA Exposure to other specified smoke, fire and flames, initial encounter